=== PATIENT | male | born 1965 | race Caucasian/White ===

== ENCOUNTER 2019-10-27 06:58 | Day surgery (SDC) | payer MEDICAID ==
[~2019-10-27] VITALS: Ht 160 cm; Wt 64.0 kg
[2019-10-27] MEDS ORDERED: SIMETHICONE 40 MG/0.6 ML ML ONE (07:48)
[2019-10-27] MEDS ORDERED: MEPERIDINE HCL/PF 25 MG/ML DISP.SYRIN ONE ×2 (08:11→09:10)
[2019-10-27] MEDS: MIDAZOLAM HCL 5 MG/5 ML VIAL ONE ×4 (08:36→08:47)
[2019-10-27] MEDS: MEPERIDINE HCL/PF 100 MG/ML AMP ONE ×2 (08:37→08:51)
[2019-10-27] MEDS ORDERED: CEFAZOLIN 1 GM IVPB PREMIX 50 ML IV ONE (08:56)
[2019-10-27 11:05] VITALS: BP_SYST 129
== END 2019-10-27 10:15 | disposition home or self-care (01) ==
LOC: SDS 06:58 → SMU 07:22 → SDS 10:15
PROVIDERS: ATTEND Internal Medicine Gastroenterology
DX: R13.10 Dysphagia, unspecified (principal); Z85.038 Personal history of other malignant neoplasm of large intestine; Z98.890 Other specified postprocedural states; Z79.899 Other long term (current) drug therapy; Z11.59 Encounter for screening for other viral diseases
CPT/HCPCS: 43246; 82962; G0378; J0690; J2175; J2250; J7030; U0003